=== PATIENT | female | born 1950 | race American Indian/Alaskan Native ===

== ENCOUNTER 2016-11-27 06:53 | Inpatient (IN) | payer MEDICARE ==
--- NOTE | 2016-11-25 09:34 | Anesthesia Consultation ---
Anesthesia Consult and Med Hx Date of service: 11/25/16 - Airway Anesthetic Teeth Evaluation: Dentures ROM Head & Neck: Adequate Mental/Hyoid Distance: Adequate Mallampati Class: Class II Intubation Access Assessment: Probably Good - Pulmonary Exam CTA: Yes - Cardiac Exam Cardiac Exam: RRR - Pre-Operative Health Status ASA Pre-Surgery Classification: ASA3 Proposed Anesthetic Plan: Epidural, Spinal Nerve Block: Adductor canal - Pulmonary Hx Smoking: Yes (NOW-1 PACK /2WEEK, BUT PAST 1/2PPD) Hx Asthma: Yes (INHALERS PRN) - Cardiovascular System Hx Hypertension: Yes (X 10 YRS) Hx Heart Attack/AMI: Yes (7 YRS AGO) Hx Angina: Yes (2 MONTHS AGO,NITRO PRN) Hx Peripheral Vascular Disease: Yes (LEGS) - Central Nervous System CVA: Yes (10 YRS AGO- SLURRED SPEECH) Hx Back Pain: Yes - Other Systems Hx Substance Use: Yes (HX COCAINE ABUSE- CLEAN X 6 YRS) Hx Cancer: No
[2016-11-25 09:36] LABS: Basophils % (Auto) 0.5 % (0.0-1.8); Eosinophils % (Auto) 1.6 % (0.0-4.3); Hematocrit 39.2 % (30.3-42.9); Hemoglobin 12.3 gm/dl (10.1-14.3); Mean Corpuscular HGB Conc 32 % (30-34); Mean Corpuscular Volume 82 fl (79-97); Platelet Count 219 K/mm3 (140-440); Red Blood Count 4.77 M/mm3 (3.65-5.03); Red Cell Distribution Width 15.4 % (13.2-15.2); White Blood Count 8.1 K/mm3 (4.5-11.0)
[2016-11-25 09:41] LABS: Mean Corpuscular Hemoglobin 26 pg (28-32)
[2016-11-25 09:46] LABS: INR 1.01 (0.87-1.13); Partial Thromboplastin Time 26.7 Sec. (24.2-36.6)
[2016-11-25 10:01] LABS: Alanine Aminotransferase 14 units/L (7-56); Albumin 3.9 g/dL (3.9-5); Albumin/Globulin Ratio 1.1 %; Alkaline Phosphatase 129 units/L (35-129); Anion Gap 17 mmol/L; BUN/Creatinine Ratio 18.75; Bilirubin,Total < 0.2 mg/dL (0.1-1.2); Blood Urea Nitrogen 15 mg/dL (7-17); Calcium 9.3 mg/dL (8.4-10.2); Carbon Dioxide 25 mmol/L (22-30); Chloride 104.6 mmol/L (98-107); Glucose 119 mg/dL (65-100); Potassium 4.1 mmol/L (3.6-5.0); Sodium 142 mmol/L (137-145); Total Protein 7.5 g/dL (6.3-8.2)
[~2016-11-27 06:53] MED LIST: MARCAINE-EPI 0.5%-1:200,000 INFILTRATI ONE; NACL 0.9% 1000 ML 1,000 ML IV SCH; NACL INFILTRATI ONE; NACL P/F VIAL (10 ML) INFILTRATI ONE; NEURONTIN PO NR; TRANEXAMIC ACID IV ONE; VANCOMYCIN/NS 1 GM/250 ML 250 ML IV NR; VERSED IV NR
[2016-11-27] MEDS ORDERED: MARCAINE-EPI 0.25%-1:200,000 INFILTRATI ONE (08:56)
[2016-11-27] MEDS ORDERED: DECADRON ONE (08:56)
[2016-11-27] MEDS ORDERED: VERSED IV NR (09:13)
[2016-11-27] MEDS ORDERED: TYLENOL PO PRN (09:30)
[2016-11-27] MEDS ORDERED: MORPHINE IV PRN (09:30)
[2016-11-27] MEDS ORDERED: PHENERGAN PR PRN (09:30)
[2016-11-27] MEDS ORDERED: MILK OF MAGNESIA PO PRN (09:30)
[2016-11-27] MEDS ORDERED: DULCOLAX PR PRN (09:30)
[2016-11-27] MEDS ORDERED: ZOFRAN IV PRN (09:30)
[2016-11-27] MEDS ORDERED: SODIUM CHLORIDE FLUSH SYRINGE 10 ML IV PRN (09:30)
--- NOTE | 2016-11-27 09:40 | Procedure Note ---
Date of procedure: 11/27/16 Pre-op diagnosis: djd right knee Post-op diagnosis: same Procedure: right total knee replacement total synovectomy Anesthesia: regional Surgeon: YARED KESSLER Nail Expert: SATHISH LOONEY
[2016-11-27] MEDS ORDERED: SUBLIMAZE ONE (09:59)
[2016-11-27] MEDS ORDERED: D5/0.45NS 1,000 ML IV SCH (10:00)
[2016-11-27] MEDS ORDERED: ePHEDrine SULFATE ONE ×2 (10:24→11:51)
[2016-11-27] MEDS ORDERED: NEOSPORIN GU IR ONE (10:32)
[2016-11-27] MEDS ORDERED: TORADOL IV ONE (10:33)
[2016-11-27] MEDS ORDERED: MORPHINE IM ONE (10:33)
[2016-11-27] MEDS ORDERED: NACL 0.9% IR ONE ×2 (10:33→10:34)
[2016-11-27] MEDS ORDERED: DEPO-MEDROL INTRA-ARTI ONE (10:33)
[2016-11-27] MEDS ORDERED: MARCAINE-EPI 0.5%-1:200,000 INFILTRATI ONE ×2 (10:33→11:01)
[2016-11-27] MEDS ORDERED: XYLOCAINE MPF 2% ONE ×2 (10:37)
--- NOTE | 2016-11-27 10:49 | Admit Criteria Form ---
Admission Criteria Documentation: AMBULATORY SURGERY EXCEPTION CRITERIA Ambulatory Surgery Exception Criteria ( Place 'X' for any and all applicable criteria): Surgery or procedure performed on ambulatory basis may require inpatient stay for[A] ANY ONE of the following(1)(2)(3)(4)(5)(6)(7)(8)(9): [X] I. A preoperative situation, condition, or finding that warrants inpatient stay as indicated by ANY ONE of the following: [] a) Inpatient care needed because of severity of a disease or condition rather than the surgery (eg, severe cardiac or respiratory disease, severe infection) (15) (16 ) (17) (18) [] b) Emergent procedure (eg, angioplasty for acute ischemia)(19) [] c) Complex surgical approach or situation as indicated by ANY ONE of the following(3): [] i) Open approach needed instead of usual endoscopic, transcatheter, or other less invasive procedure [] ii) Difficult approach because of previous operation [] iii) Airway monitoring required after open neck procedures(20)(21) [] iv) Large mass requiring unusually extensive dissection [] v) Additional complicating feature requiring inpatient care (eg, drain management)(22(23): [X] d) Major surgery in a pt with high anesthetic risk as indicated by ANY ONE of the following (2)(3)(5)(7)(8): [X] i) ASA risk class III or higher (severe systemic disease impairing function) [D] [] ii) Advanced age (eg, older than 85 years)(14)(24) [] iii) Symptomatic heart failure(25) [] iv) Symptomatic asthma or COPD(8)(21) [] v) Morbid obesity with hemodynamic or respiratory problems(20)( 21)(26)(27) [] vi) Obstructive sleep apnea(20)(21) [] vii) Former premature infants who are younger than 60 weeks [] viii) High risk for severe postoperative abnormalities (eg, severe postoperative hypocalcemia after parathyroidectomy for severe hyperparathyroidism)(27)( 28) [] ix) Unstable angina(25) [] e) Drug-related risk requiring inpatient stay as indicated by ANY ONE of the following(5)(10)(14)(32)(33) [] i) Procedure requires discontinuing drugs or other therapy (eg , antiarrhythmic medication, antiseizure medication), which necessitates inpatient observation or treatment.(18)(31) [] ii) Major surgery and high risk drug use as indicated by ANY ONE of the following: [] 1) Active abuse of cocaine or similar drug [] 2) Monoamine oxidase inhibitor use [] 3) Other drug identified as posing risk [] f) Inadequate outpatient care situation as indicated by ANY ONE of the following(5)(10)(14)(32)(33) [] i) Patient lives remote from medical facility and procedure has urgent complication potential, and temporary nearby residence cannot be arranged [] ii) Patient will have postprocedure incapacitation and inadequate assistance at home, or alternative level of care cannot be arranged. [] iii) Patient will have long general anesthesia or procedure side effect resolution time, and competent person to stay with patient on first postoperative night at home or alternative level of care cannot be arranged. []iv) Other inadequate outpatient situation that cannot be handled by other means [] II. A perioperative event, condition, or finding that warrants inpatient stay as indicated by ANY ONE of the following (1)(2)(3): [] a) Inadequate physiologic recovery: cardiovascular, respiratory, or hemodynamic status not normal or near preoperative baseline(18) [] b) Hemodynamic instability [] c) Patient not alert with near normal or baseline mental status [] d) Temperature not normal or as expected and not appropriate for outpatient treatment of condition [] e) Ambulatory or appropriate activity level status not yet achieved post procedure [E](34)(35)(36) [] f) Operative site not appropriate (eg, unexpected or excessive drainage or bleeding) [] g) Postoperative effects not resolved or adequately managed (eg, significant pain or vomiting not appropriate for outpatient or next level of care)(10)(12) [] h) Complicating features requiring inpatient care as indicated by ANY ONE of the following(37): [] i) Severe complications of procedure (eg, bowel injury, airway compromise, vascular injury,severe hemorrhage) [] ii) Extensive (eg, dissection far beyond usual scope of procedure ) or prolonged (eg, 120 minutes beyond usual) surgery needed requiring inpatient postoperative care [] iii) Conversion to an open or complex procedure that requires inpatient care (eg, open vs laparoscopic cholecystectomy, abdominal vs vaginal hysterectomy)(38) [] iv) Comorbid condition or test result identified during or post procedure that requires inpatient care (7) [] v) Malignant hyperthermia(30) [] vi) Other complicating feature requiring inpatient care(22)(23) Inpatient stay may be needed until ALL of the following are present (1)(2)(3)(4) (5)(6)(10)(14)(33)(40): []a) Physiologic recovery: cardiovascular, respiratory, and hemodynamic status normal or near preoperative baseline []b) Hemodynamic stability []c) Patient alert, with near normal or baseline mental status []d) Temperature appropriate: patient afebrile or temperature appropriate for outpt treatment of condition []e) Activity level appropriate: ambulatory or appropriate activity level post procedure []f) Operative site appropriate as indicated by ALL of the following: []i) Site dry or with expected drainage []ii) Any blood noted is as expected for procedure. []g) Postoperative effects resolved or managed as indicated by ALL of the following: []i) Pain management appropriate for outpatient (or next level of) care(10) []ii) Minimal nausea and vomiting: if present, successfully treated with oral medication(12) []iii) Headache, dizziness, or drowsiness (if present) are mild. []h) Voiding status acceptable as indicated by ANY ONE of the following: []i) Voiding spontaneously []ii) No voiding but instructions given for follow-up in 6 to 8 hours []iii) Urinary catheter in place, and instructions given for follow-up []i) Complicating features requiring inpatient care manageable at a lower level of care(37) []j) Comorbid conditions manageable at a lower level of care(37) The original [employer] content created by [employer] has been revised. The portions of the content which have been revised are identified through the use of italic text or in bold, and [facility] [employer] has neither reviewed nor approved the modified material. All other unmodified content is copyright [employer]. Please see references footnoted in the original [employer] edition 2016 Admission Criteria Met: Yes
[2016-11-27] MEDS ORDERED: NACL 0.9% 1000 ML 1,000 ML ONE ×2 (10:53→12:24)
[2016-11-27] MEDS ORDERED: NEURONTIN PO NR (11:00)
[2016-11-27] MEDS ORDERED: ANCEF/NS 1 GM/50 ML 50 ML IV SCH (11:00)
[2016-11-27] MEDS ORDERED: NACL INFILTRATI ONE (11:01)
[2016-11-27] MEDS ORDERED: NACL P/F VIAL (10 ML) INFILTRATI ONE (11:01)
[2016-11-27] MEDS ORDERED: TRANEXAMIC ACID IV ONE (11:01)
[2016-11-27] MEDS ORDERED: DIPRIVAN 10 MG/ML 100 ML IV ONE (11:30)
[2016-11-27] MEDS: ePHEDrine SULFATE IV PRN ×2 (11:53→12:05)
[2016-11-27] MEDS ORDERED: ePHEDrine SULFATE IM NR (12:15)
--- NOTE | 2016-11-27 12:29 | Post Anesthesia Evaluation ---
- Post Anesthesia Evaluation Patient Participated: Yes Airway Patent: Yes Stable Respiratory Function: Yes Nausea/Vomiting: No Temp > 96.8F: Yes Pain Manageable: Yes Adequeate Hydration: Yes Anesthesia Complications: No
[2016-11-27] MEDS ORDERED: NACL 0.9% 500 ML 500 ML IV ONE (12:42)
[2016-11-27] MEDS ORDERED: AMBIEN PO PRN (22:00)
[2016-11-28] MEDS: NORCO 5/325 PO PRN (04:30)
--- NOTE | 2016-11-28 08:26 | Progress Note ---
Assessment and Plan alert orientated in NAD chest clear, soft abdoen , moderate pain, wound ok. Doing well. OOB. plan DC in am. Subjective Date of service: 11/28/16 Objective Vital signs: Vital Signs - 12hr 11/27/16 11/27/16 11/28/16 22:00 22:57 01:16 Temperature 98.7 F 98.7 F Pulse Rate [ 84 80 Left] Respiratory 20 20 Rate Blood Pressure 93/43 83/40 [Left Arm] O2 Sat by Pulse 96 96 98 Oximetry - Labs CBC & BMP: 11/25/16 09:10 11/25/16 09:10 Labs: Abnormal lab results 11/27/16 11/27/16 11/27/16 Range/Units 08:35 11:29 16:31 POC Glucose 125 H 157 H 173 H (70-105)
--- NOTE | 2016-11-28 09:20 | Consultation ---
History of Present Illness - Reason for Consult Consult date: 11/28/16 Medical management Requesting physician: YARED KESSLER - History of Present Illness S/p R TKA-doing well Past History Past Medical History: CAD, hypertension, other (Asthma) Medications and Allergies Allergies Allergy/AdvReac Type Severity Reaction Status Date / Time No Known Allergies Allergy Verified 07/05/15 07:52 Home Medications Medication Instructions Recorded Confirmed Last Taken Type Diltiazem HCl [Diltiazem ER] 240 mg PO QDAY 02/06/15 11/20/16 11/27/16 05:30 History Lisinopril 40 mg PO DAILY 02/06/15 11/20/16 11/27/16 05:30 History Albuterol Sulfate [Albuterol 0.63% 0.63 mg IH TID PRN #1 box 07/05/15 11/20/16 Unknown Rx NEBS] Albuterol Sulfate [Ventolin HFA] 2 puff IH Q4H PRN #1 [email or web address] 07/05/1511/27/16 05:30 Rx ISOSORBIDE MONOnitrate [Imdur ER] 60 mg PO QDAY 07/05/15 11/20/16 11/27/16 05: 30 History Nitroglycerin [Nitrostat] 0.4 mg SL Q5M PRN 07/05/15 11/20/16 09/15/16 History Aspirin [Adult Low Dose Aspirin EC] 81 mg PO DAILY 11/20/16 11/20/16 1 Week Ago History AtorvaSTATin [Lipitor] 40 mg PO DAILY 11/20/16 11/20/16 11/27/16 05:30 History Clopidogrel Bisulfate [Plavix] 75 mg PO DAILY 11/20/16 11/20/16 1 Week Ago History Fluticasone/Salmeterol [Advair 1 puff INHALATION PRN PRN 11/20/16 11/20/1611/27 05:30 History Diskus 100-50 mcg] Ibuprofen [Motrin] 800 mg PO Q8HR PRN 11/20/16 11/20/16 1 Week Ago History Latanoprost 0.005% [Xalatan 0.005%] 1 drop OP QPM 11/20/16 11/20/16 11/26/16 History [place]-3 Fatty Acids/Fish Oil [Fish 1 cap PO DAILY 11/20/16 11/20/16 11/26/16 History Oil] metFORMIN [Glucophage] 500 mg PO BID 11/20/16 11/20/16 11/26/16 History Furosemide [Lasix] 20 mg PO QDAY 11/27/16 11/27/16 11/26/16 History Active Meds: Active Medications Acetaminophen (Tylenol) 650 mg PO Q4H PRN PRN Reason: Pain MILD(1-3)/Fever >100.5/LEE Acetaminophen/Hydrocodone Bitart ([place] 5/325) 1 each PO Q6H PRN PRN Reason: Pain, Moderate (4-6) Last Admin: 11/28/16 04:30 Dose: 1 each Bisacodyl (Dulcolax) 10 mg MO QDAY PRN PRN Reason: Constip unreliev by MOM/or NPO Enoxaparin Sodium (Lovenox) 40 mg SUB-Q QDAY MAR Dextrose/Sodium Chloride (D5/0.45ns) 1,000 mls @ 100 mls/hr IV DIRECT MAR Magnesium Hydroxide (Milk Of Magnesia) 30 ml PO Q4H PRN PRN Reason: Constipation Morphine Sulfate (Morphine) 2 mg IV Q4H PRN PRN Reason: Pain, Moderate (4-6) Last Admin: 11/27/16 15:40 Dose: 2 mg Morphine Sulfate (Morphine) 4 mg IV Q4H PRN PRN Reason: Pain , Severe (7-10) Ondansetron HCl (Zofran) 4 mg IV Q8H PRN PRN Reason: Nausea And Vomiting Oxycodone HCl (Oxycontin) 10 mg PO Q12HR MAR Promethazine HCl (Phenergan) 25 mg MO Q6H PRN PRN Reason: Nausea And Vomiting Zolpidem Tartrate (Ambien) 5 mg PO QHS PRN PRN Reason: Sleep Review of Systems All systems: negative Exam - Constitutional Vitals: Temp Pulse Resp BP Pulse Ox 98.7 F 80 20 83/40 98 11/28/16 01:16 11/28/16 01:16 11/28/16 01:16 11/28/16 01:16 11/28/16 01:16 General appearance: Present: no acute distress, well-nourished - EENT Eyes: Present: PERRL ENT: hearing intact, clear oral mucosa - Neck Neck: Present: supple, normal ROM - Respiratory Respiratory effort: normal Respiratory: bilateral: CTA - Cardiovascular Heart Sounds: Present: S1 & S2. Absent: rub, click - Extremities Extremities: pulses symmetrical, No edema Peripheral Pulses: within normal limits - Abdominal General gastrointestinal: Present: soft, non-tender, non-distended, normal bowel sounds Female genitourinary: Present: normal - Integumentary Integumentary: Present: clear, warm, dry - Musculoskeletal Musculoskeletal: gait normal, strength equal bilaterally - Psychiatric Psychiatric: appropriate mood/affect, intact judgment & insight - Neurologic Neurologic: CNII-XII intact, moves all extremities Results - Labs CBC & Chem 7: 11/25/16 09:10 11/25/16 09:10 Labs: Abnormal lab results 11/27/16 11/27/16 Range/Units 11:29 16:31 POC Glucose 157 H 173 H (70-105) Assessment and Plan - Patient Problems (1) History of total knee arthroplasty Current Visit: Yes Status: Acute Qualifiers: Laterality: right Qualified Code(s): Z96.651 - Presence of right artificial knee joint (2) HTN (hypertension) Current Visit: Yes Status: Chronic Qualifiers: Hypertension type: essential hypertension Qualified Code(s): I10 - Essential (primary) hypertension (3) Asthma Current Visit: Yes Status: Chronic Qualifiers: Asthma severity: mild intermittent (4) CAD (coronary artery disease) Current Visit: Yes Status: Chronic Qualifiers: Coronary Disease-Associated Artery/Lesion type: [place] artery Associated angina: without angina (5) DVT prophylaxis Current Visit: Yes Status: Acute Plan to address problem: on lovenox (6) Pain management Current Visit: Yes Status: Acute
[2016-11-28] MEDS: MORPHINE IV PRN ×3 (09:45→19:45)
[2016-11-28] MEDS: LOVENOX SUB-Q SCH (10:00)
[2016-11-28] MEDS: OxyCONTIN PO SCH ×2 (10:00→22:10)
--- NOTE | 2016-11-28 11:49 | Progress Note ---
Subjective Date of service: 11/28/16 Interval history: 1st POD after total knee replacement. Patient is in the bed, relatively comfortable. Pain is well controlled with pain meds. Ambulated with physical therapist. No nausea or vomiting. No anesthesia complications Objective - Constitutional Vitals: Vital Signs - 12hr 11/28/16 11/28/16 01:16 08:00 Temperature 98.7 F 97.6 F Pulse Rate [ 80 91 H Left] Respiratory 20 20 Rate Blood Pressure 83/40 132/67 [Left Arm] O2 Sat by Pulse 98 97 Oximetry - Labs CBC & Chem 7: 11/25/16 09:10 11/25/16 09:10 Labs: Abnormal lab results 11/27/16 Range/Units 16:31 POC Glucose 173 H (70-105)
[2016-11-28] MEDS ORDERED: IMDUR PO SCH (19:00)
[2016-11-28] MEDS ORDERED: NON-FORMULARY (Fluticasone/Salmeterol [Advair Diskus 100-50 Mcg] 1 PUFF) INHALATION PRN (19:00)
[2016-11-28] MEDS ORDERED: PLAVIX PO SCH (19:00)
[2016-11-28] MEDS ORDERED: HALFPRIN EC PO SCH (19:00)
[2016-11-28] MEDS ORDERED: LASIX PO SCH (19:00)
[2016-11-28] MEDS ORDERED: MOTRIN PO PRN (19:00)
[2016-11-28] MEDS ORDERED: NITROSTAT SL PRN (19:00)
[2016-11-28] MEDS ORDERED: PROAIR IH PRN (19:00)
[2016-11-28] MEDS ORDERED: ZESTRIL PO SCH (19:00)
[2016-11-28] MEDS ORDERED: FISH OIL PO SCH (19:00)
[2016-11-28] MEDS ORDERED: NON-FORMULARY (Albuterol Sulfate [Albuterol 0.63% Nebs] 0.63 MG) IH PRN (19:00)
[2016-11-28] MEDS ORDERED: NON-FORMULARY (Diltiazem Hcl [Diltiazem Er] 240 MG) PO SCH (19:00)
[2016-11-28] MEDS ORDERED: PROVENTIL IH PRN (19:25)
[2016-11-28] MEDS ORDERED: CARDIZEM CD PO SCH (20:00)
[2016-11-28] MEDS: GLUCOPHAGE PO SCH (22:11)
[2016-11-29] MEDS: MORPHINE IV PRN (08:35)
[2016-11-29] MEDS: BROVANA NEBU IH SCH ×2 (08:41→08:43)
[2016-11-29] MEDS: PULMICORT IH SCH ×2 (08:41→08:43)
[2016-11-29] MEDS: LOVENOX SUB-Q SCH (10:00)
[2016-11-29] MEDS: NORCO 5/325 PO PRN (10:00)
[2016-11-29] MEDS: OxyCONTIN PO SCH (10:00)
[2016-11-29] MEDS: GLUCOPHAGE PO SCH (10:00)
--- NOTE | 2016-11-29 16:32 | Progress Note ---
Assessment and Plan Assessment and plan: 1. Status post right total knee replacement - management per Ortho 2. CAD - without angina; on beta aster, SHUBHAM inhibitor, nitrates, antiplatelet and statin therapy 3. Hypertension - BP controlled on current regimen 4. Diabetes - continue metformin; if BS elevated will add sliding scale insulin 5. Asthma - without exacerbation; continue inhaled bronchodilators 6. DVT prophylaxis - per primary team History Interval history: doing well, c/o mild right knee pain Hospitalist Physical - Constitutional Vitals: Temp Pulse Resp BP Pulse Ox 98.1 F 75 18 131/66 97 11/29/16 07:15 11/29/16 08:41 11/29/16 08:41 11/29/16 07:15 11/29/16 08:41 General appearance: Present: no acute distress, obese - Neck Neck: Present: supple, normal ROM. Absent: masses or JVD - Respiratory Respiratory effort: normal Respiratory: bilateral: CTA, negative: rales, rhonchi, wheezing - Cardiovascular Rhythm: regular Heart Sounds: Present: S1 & S2. Absent: systolic murmur - Extremities Extremities: no ischemia - Abdominal General gastrointestinal: soft, non-tender, non-distended, normal bowel sounds - Psychiatric Psychiatric: cooperative - Neurologic Neurologic: CNII-XII intact, no focal deficits Results - Labs CBC & Chem 7: 11/25/16 09:10 11/25/16 09:10 Labs: Laboratory Last Values WBC 8.1 K/mm3 (4.5-11.0) 11/25/16 09:10 RBC 4.77 M/mm3 (3.65-5.03) 11/25/16 09:10 Hgb 12.3 gm/dl (10.1-14.3) 11/25/16 09:10 Hct 39.2 % (30.3-42.9) 11/25/16 09:10 MCV 82 fl (79-97) 11/25/16 09:10 MCH 26 pg (28-32) L 11/25/16 09:10 MCHC 32 % (30-34) 11/25/16 09:10 RDW 15.4 % (13.2-15.2) H 11/25/16 09:10 Plt Count 219 K/mm3 (140-440) 11/25/16 09:10 Lymph % (Auto) 32.9 % (13.4-35.0) 11/25/16 09:10 [place] % (Auto) 6.8 % (0.0-7.3) 11/25/16 09:10 Eos % (Auto) 1.6 % (0.0-4.3) 11/25/16 09:10 Baso % (Auto) 0.5 % (0.0-1.8) 11/25/16 09:10 Lymph # 2.7 K/mm3 (1.2-5.4) 11/25/16 09:10 [place] # 0.5 K/mm3 (0.0-0.8) 11/25/16 09:10 Eos # 0.1 K/mm3 (0.0-0.4) 11/25/16 09:10 Baso # 0.0 K/mm3 (0.0-0.1) 11/25/16 09:10 Seg Neutrophils % 58.2 % (40.0-70.0) 11/25/16 09:10 Seg Neutrophils # 4.7 K/mm3 (1.8-7.7) 11/25/16 09:10 PT 13.2 Sec. (12.2-14.9) 11/25/16 09:10 INR 1.01 (0.87-1.13) 11/25/16 09:10 APTT 26.7 Sec. (24.2-36.6) 11/25/16 09:10 Sodium 142 mmol/L (137-145) 11/25/16 09:10 Potassium 4.1 mmol/L (3.6-5.0) 11/25/16 09:10 Chloride 104.6 mmol/L (98-107) 11/25/16 09:10 Carbon Dioxide 25 mmol/L (22-30) 11/25/16 09:10 Anion Gap 17 mmol/L 11/25/16 09:10 BUN 15 mg/dL (7-17) 11/25/16 09:10 Creatinine 0.8 mg/dL (0.7-1.2) 11/25/16 09:10 Estimated GFR > 60 ml/min 11/25/16 09:10 BUN/Creatinine Ratio 18.75 % 11/25/16 09:10 Glucose 119 mg/dL (65-100) H 11/25/16 09:10 POC Glucose 125 (70-105) H 11/29/16 11:53 Calcium 9.3 mg/dL (8.4-10.2) 11/25/16 09:10 Total Bilirubin < 0.2 mg/dL (0.1-1.2) 11/25/16 09:10 AST 13 units/L (5-40) 11/25/16 09:10 ALT 14 units/L (7-56) 11/25/16 09:10 Alkaline Phosphatase 129 units/L (35-129) 11/25/16 09:10 Total Protein 7.5 g/dL (6.3-8.2) 11/25/16 09:10 Albumin 3.9 g/dL (3.9-5) 11/25/16 09:10 Albumin/Globulin Ratio 1.1 % 11/25/16 09:10
[2016-11-29 17:10] VITALS: BP 116/50
[2016-11-29] MEDS ORDERED: XALATAN 0.005% OU SCH (18:00)
--- NOTE | 2016-11-30 11:49 | Operative Report ---
PREOPERATIVE DIAGNOSES: 1. Degenerative arthritis of the right knee. 2. Chronic synovitis, right knee. PROCEDURES: 1. Total knee replacement arthroplasty, right knee ([place]). 2. Complete synovectomy of the knee. SURGEON: Dr. Yony Hurtado. CERTIFIED PARALEGAL: Jose Manuel Guillermo RN. ANESTHESIA: General. COMPLICATIONS: None. COMPONENTS USED: Philip Triathlon knee cruciate retaining #2 femur, #2 tibia with a 9 mm tibial bearing, and 29 mm patella. BRIEF HISTORY: The patient is a 65-year-old female, who was admitted to the hospital for surgical repair of the knee. The patient has a history of chronic knee pain that limit her activities, chronic recurrent swelling and effusions of the knee joint. PROCEDURE IN DETAIL: Once the patient was in the surgical room, a time-out was carried out to identify the patient and procedure, the procedure was carried out using an assistance secondary to the complexity of the case. Once this was done, the procedure was done by making a straight midline incision in front of the knee joint. Dissection was carried out to subcutaneous tissues, the dissection was carried out to allow medial parapatellar incision into the joint. The incision was carried out, a retractor was applied. At this point, resection of the synovium was done. The synovectomy was started in the superior pouch. The synovium was from the deep muscle layer and it was sharply and bluntly. The dissection was carried out to the right and left of the midline cleaning up both medial and lateral gutters. Once this was done, the pouch was removed from the field. The wound was extensively irrigated, following that the knee was placed in flexion. The patella was everted, at this point using the Philip instrumentation, a drill hole was carried out into the medullary canal of the femur, following this, using this as a reference, cutting of the femur was carried out to a size 2. A lamina bowling ball weigher and packer was placed in the joint, and menisci were resected. At this point, the tibia was cut using the extramedullary guide. The tibia was cut without any problems, at this point, lamina bowling ball weigher and packer was carried out and the finishing of the synovectomy was carried out by cleaning out of the gutters and the posterior aspect of the knee joint. Once this was carried out, the trialing of the knee was done. Trial components were inserted and determination of the tibial spacing was done. The patella was then measured and cut. Once this was done, all the components were removed. The knee was infiltrated with Marcaine with epinephrine and multiple injections in a clock fashion. Once this was carried out, the procedure was continued by drying of the knee, the actual component was then inserted. Fixation of the components were carried out into the joint using acrylic cement. The joint was reduced and full range of motion was carried out. The joint was stable both in the flexion and extension. The procedure was then terminated, the knee capsule was closed with #1 Vicryl using the subcutaneous tissues with 2-0 Vicryl, the skin with skin clips, a compression bandage was applied. The patient tolerated the procedure well. There were no complications. JOB# [id number] ATILIO/GREG GLASS
== END 2016-11-29 18:15 | disposition home or self-care (01) | DRG 470 ==
LOC: 3A 06:53 → 2B-SURG 12:03
PROC: 0SRC0J9 Replacement of Right Knee Joint with Synthetic Substitute, Cemented, Open Approach (ICD-10-PCS; principal; 2016-11-27)
PROC: 0SBC0ZZ Excision of Right Knee Joint, Open Approach (ICD-10-PCS; 2016-11-27)
DX: M17.11 Unilateral primary osteoarthritis, right knee (principal); F17.210 Nicotine dependence, cigarettes, uncomplicated; I73.9 Peripheral vascular disease, unspecified; M54.9 Dorsalgia, unspecified; I25.10 Atherosclerotic heart disease of native coronary artery without angina pectoris; I10 Essential (primary) hypertension; J45.909 Unspecified asthma, uncomplicated; E11.9 Type 2 diabetes mellitus without complications; M65.9 Synovitis and tenosynovitis, unspecified; M25.469 Effusion, unspecified knee; I25.2 Old myocardial infarction; I69.328 Other speech and language deficits following cerebral infarction; Z79.899 Other long term (current) drug therapy; Z79.82 Long term (current) use of aspirin; Z79.02 Long term (current) use of antithrombotics/antiplatelets; Z79.84 Long term (current) use of oral hypoglycemic drugs; Z82.61 Family history of arthritis; Z80.9 Family history of malignant neoplasm, unspecified; Z83.2 Family history of diseases of the blood and blood-forming organs and certain disorders involving the immune mechanism; Z82.3 Family history of stroke; Z82.49 Family history of ischemic heart disease and other diseases of the circulatory system; Z83.3 Family history of diabetes mellitus
CPT/HCPCS: 36415; 62324; 64450; 80053; 82962; 85025; 85610; 85730; 88304; 88305; 88311; 94760; A4217; A9270-GY; C1776; G8978-GP; G8979-GP; J1030; J1100; J1650; J1885; J2250; J2270; J2704; J3010; J3370; J7030

== ENCOUNTER 2017-01-16 13:12 | Outpatient (CLI) | payer MEDICARE ==
[2017-01-16 13:33] LABS: Bilirubin,Urine NEG (Negative); Blood,Urine NEG (Negative); Ketones,Urine NEG (Negative); Leukocyte Esterase,Urine TR (Negative); Mucus,Urine FEW /HPF; Nitrite,Urine NEG (Negative); Protein,Urine <15 mg/dL mg/dL (Negative); Urobilinogen,Urine < 2.0 mg/dL (<2.0)
== END 2017-01-16 13:13 | disposition home or self-care (01) ==
LOC: LABHHL 13:12
PROVIDERS: ATTEND Internal Medicine
DX: N39.0 Urinary tract infection, site not specified (principal)
CPT/HCPCS: 81001; 87086

== ENCOUNTER 2017-04-22 06:46 | Day surgery (SDC) | payer MEDICARE ==
[2017-04-22] MEDS ORDERED: NACL 0.9% 1000 ML 1,000 ML IV SCH (07:58)
--- NOTE | 2017-04-22 08:01 | Anesthesia Consultation ---
Anesthesia Consult and Med Hx Date of service: 04/22/17 - Airway Anesthetic Teeth Evaluation: Poor, Dentures (upper and lower) ROM Head & Neck: Adequate Mental/Hyoid Distance: Inadequate Mallampati Class: Class II Intubation Access Assessment: Probably Good - Pulmonary Exam CTA: Yes - Cardiac Exam Cardiac Exam: RRR - Pre-Operative Health Status ASA Pre-Surgery Classification: ASA3 Proposed Anesthetic Plan: General - Pulmonary Hx Smoking: Yes (1/2 PPD, quit one month ago) Hx Asthma: Yes (INHALERS PRN) Hx Sleep Apnea: No (THIAGO PRE SCREEN HIGH RISK) - Cardiovascular System Hx Hypertension: Yes Hx Coronary Artery Disease: Yes (stent x1) Hx Heart Attack/AMI: Yes (5 YRS AGO) Hx Angina: Yes (RARE,NITRO PRN) Hx Peripheral Vascular Disease: Yes (LEGS) - Central Nervous System CVA: Yes (10 YRS AGO - SLURRED SPEECH.) Hx Back Pain: Yes Hx Psychiatric Problems: No - Gastrointestinal Hx Gastroesophageal Reflux Disease: Yes - Endocrine Hx Non-Insulin Dependent Diabetes: Yes - Hematic Hx Anemia: No Hx Sickle Cell Disease: No - Other Systems Hx Alcohol Use: No Hx Substance Use: Yes (HX COCAINE ABUSE- CLEAN X 6 YRS) Hx Cancer: No Hx Obesity: Yes
--- NOTE | 2017-04-22 08:01 | Anesthesia Day of Surgery ---
Anesthesia Day of Surgery - Day of Surgery Patient Examined: Yes Patient H&P Reviewed: Yes Patient is NPO: Yes
[2017-04-22] MEDS ORDERED: VERSED IV ONE (08:15)
[2017-04-22] MEDS ORDERED: PEPCID IV ONE (08:15)
[2017-04-22] MEDS ORDERED: MARCAINE-EPI 0.5%-1:200,000 INFILTRATI ONE (08:17)
[2017-04-22] MEDS ORDERED: DECADRON IV ONE (08:18)
[2017-04-22] MEDS ORDERED: NEURONTIN PO NR (08:20)
[2017-04-22] MEDS ORDERED: DECADRON ONE (08:23)
[2017-04-22] MEDS ORDERED: MARCAINE-EPI/PF 0.5%-1:200,000 INFILTRATI ONE ×2 (08:23→08:58)
[2017-04-22] MEDS ORDERED: MORPHINE ONE (08:57)
[2017-04-22] MEDS ORDERED: DEPO-MEDROL ONE (08:57)
[2017-04-22] MEDS ORDERED: TORADOL ONE (08:59)
[2017-04-22] MEDS ORDERED: DIPRIVAN 10 MG/ML IV ONE (09:22)
[2017-04-22] MEDS ORDERED: DILAUDID ONE (09:23)
[2017-04-22] MEDS ORDERED: DEPO-MEDROL INTRA-ARTI ONE (09:29)
--- NOTE | 2017-04-22 09:39 | Short Stay Summary ---
Short Stay Documentation Date of service: 04/22/17 - History H&P: obtained from office - Allergies and Medications Current Medications: Allergies No Known Allergies Allergy (Verified 07/05/15 07:52) Home Medications Medication Instructions Recorded Confirmed Last Taken Type Diltiazem HCl [Diltiazem ER] 240 mg PO QDAY 02/06/15 04/16/17 11/27/16 05:30 History Lisinopril 40 mg PO DAILY 02/06/15 04/16/17 11/27/16 05:30 History Albuterol Sulfate [Albuterol 0.63% 0.63 mg IH TID PRN #1 box 07/05/15 04/16/17 Unknown Rx NEBS] Albuterol Sulfate [Ventolin HFA] 2 puff IH Q4H PRN #1 [email or web address] 07/05/1511/27/16 05:30 Rx ISOSORBIDE MONOnitrate [Imdur ER] 60 mg PO QDAY 07/05/15 04/16/17 11/27/16 05: 30 History Nitroglycerin [Nitrostat] 0.4 mg SL Q5M PRN 07/05/15 04/16/17 09/15/16 History Aspirin [Adult Low Dose Aspirin EC] 81 mg PO DAILY 11/20/16 04/16/17 1 Week Ago History AtorvaSTATin [Lipitor] 40 mg PO DAILY 11/20/16 04/16/17 11/27/16 05:30 History Fluticasone/Salmeterol [Advair 1 puff INHALATION PRN PRN 11/20/16 04/16/1711/27 05:30 History Diskus 100-50 mcg] Latanoprost 0.005% [Xalatan 0.005%] 1 drop OP QPM 11/20/16 04/16/17 11/26/16 History [place]-3 Fatty Acids/Fish Oil [Fish 1 cap PO DAILY 11/20/16 04/16/17 11/26/16 History Oil] metFORMIN [Glucophage] 500 mg PO BID 11/20/16 04/16/17 11/26/16 History Furosemide [Lasix] 20 mg PO QDAY 11/27/16 04/16/17 11/26/16 History Active Medications Celecoxib (Celebrex) 200 mg PO PREOP NR Stop: 04/22/17 23:59 Last Admin: 04/22/17 08:28 Dose: 200 mg Gabapentin (Neurontin) 300 mg PO PREOP NR Stop: 04/22/17 23:59 Last Admin: 04/22/17 08:27 Dose: 300 mg Sodium Chloride (Nacl 0.9% 1000 Ml) 1,000 mls @ 75 mls/hr IV DIRECT MAR Last Admin: 04/22/17 08:28 Dose: 75 mls/hr - Brief post op/procedure progress note Date of procedure: 04/22/17 Pre-op diagnosis: fibrous ankylosis right knee Post-op diagnosis: same Procedure: Manipulation under anesthesia rightn knee Anesthesia: GETA Surgeon: YARED KESSLER Estimated blood loss: none Pathology: none - Disposition Disposition: DC-01 TO HOME OR SELFCARE Short Stay Discharge Plan Follow up with: SHELLEY CANO MD [Primary Care Provider] - 7 Days
[2017-04-22] MEDS ORDERED: DILAUDID IV PRN (09:57)
[2017-04-22] MEDS ORDERED: XYLOCAINE MPF 2% ONE (10:00)
[2017-04-22] MEDS ORDERED: NORCO 10/325 PO PRN (10:12)
[2017-04-22 12:36] VITALS: BP 136/76
--- NOTE | 2017-04-22 15:27 | Operative Report ---
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 PROCEDURE: Manipulation of the knee under anesthesia, right knee. COMPLICATIONS: None. PROCEDURE IN DETAIL: Once the patient was in the surgical room, a time-out was carried out to identify the patient and procedure. At this point, once the adequate anesthetic level was obtained, the knee was manipulated. The knee was ____ flexing the knee we pushed on from about 60 degrees of flexion to about 100 degrees. This was done without any gross complications. This was done many times. Once this was done, the procedure was terminated. The knee was prepped and 40 mg of Depo-Medrol were injected into the joint space. Once this was carried out, the procedure was terminated. The patient was taken to the Recovery room, doing well. JOB# [id number] ATILIO/GREG
== END 2017-04-22 13:42 | disposition home or self-care (01) ==
LOC: OR 06:46
DX: M24.661 Ankylosis, right knee (principal); M17.11 Unilateral primary osteoarthritis, right knee; I10 Essential (primary) hypertension; I25.10 Atherosclerotic heart disease of native coronary artery without angina pectoris; J45.909 Unspecified asthma, uncomplicated; K21.9 Gastro-esophageal reflux disease without esophagitis; E11.9 Type 2 diabetes mellitus without complications; E66.9 Obesity, unspecified; Z68.41 Body mass index [BMI] 40.0-44.9, adult; Z87.898 Personal history of other specified conditions; Z87.891 Personal history of nicotine dependence; Z95.5 Presence of coronary angioplasty implant and graft; Z86.73 Personal history of transient ischemic attack (TIA), and cerebral infarction without residual deficits; Z86.79 Personal history of other diseases of the circulatory system; Z96.651 Presence of right artificial knee joint; Z79.84 Long term (current) use of oral hypoglycemic drugs; Z79.82 Long term (current) use of aspirin; Z79.899 Other long term (current) drug therapy; Z82.49 Family history of ischemic heart disease and other diseases of the circulatory system; Z82.3 Family history of stroke; Z82.61 Family history of arthritis; Z83.3 Family history of diabetes mellitus; Z83.2 Family history of diseases of the blood and blood-forming organs and certain disorders involving the immune mechanism; Z80.9 Family history of malignant neoplasm, unspecified
CPT/HCPCS: 27570; 36415; 64447; 82962; 84132; J1030; J1100; J1170; J2250; J2704; J7030; J1885; J2270

== ENCOUNTER 2018-02-12 08:12 | Outpatient (CLI) | payer MEDICARE ==
[2018-02-12 09:00] LABS: Blood Urea Nitrogen 13 mg/dL (7-17)
--- NOTE | 2018-02-12 11:20 | Cat Scan Report ---
FINAL REPORT EXAM: CT ABDOMEN WO CON HISTORY: LOCALIZED SWELLING/MASS LUMP TRUNK/LEFT UPPER QUADRANT PAIN TECHNIQUE: CT examination of the abdomen without IV contrast PRIORS: Chest CT 12/11/2016 FINDINGS: Nonspecific slight skin thickening in each breast is unchanged. Stable slight linear scar in both lung bases. Degenerative change in the regional skeleton. No evidence of acute fracture. Coronary artery calcification. Large calcified gallstone again noted in the gallbladder lumen. No CT evidence of other biliary pathology. Normal noncontrast appearance of the liver, adrenals, pancreas, and spleen. Normal caliber abdominal aorta with severe calcified atherosclerotic plaque. Normal caliber IVC. Prominent plaque at the origin of the celiac artery and SMA may be associated with stenosis. No retroperitoneal adenopathy. No mesenteric mass. Normal-appearing kidneys and visible ureteral segments. No evidence of ascites. Small hiatal hernia. Otherwise normal appearing stomach and duodenum. No distention of included small and large bowel. No evidence of free air. 2.0 x 3.3 cm subcutaneous nonspecific fatty lesion most compatible with lipoma. Sagittal dimension is 3.7 cm. It is positioned in the left anterolateral left upper quadrant abdominal wall. Small fat containing midline ventral hernia with maximum transverse dimension of 1.8 cm is noted in the mid to upper abdomen. IMPRESSION: 1.8 cm fat containing midline ventral hernia 2.0 x 3.3 x 3.7 cm fatty lesion in the anterolateral left upper quadrant abdominal wall subcutaneous tissues Nonspecific slight skin thickening in each breast is unchanged Stable slight linear scar in both lung bases and coronary artery calcification Stable large calcified gallstone in gallbladder lumen Prominent plaque at the origin of the celiac artery and SMA may be associated with stenosis
== END 2018-02-12 08:13 | disposition home or self-care (01) ==
LOC: CT 08:12
PROVIDERS: ATTEND Internal Medicine
DX: K80.20 Calculus of gallbladder without cholecystitis without obstruction (principal); K44.9 Diaphragmatic hernia without obstruction or gangrene; K43.9 Ventral hernia without obstruction or gangrene; J98.4 Other disorders of lung; I25.10 Atherosclerotic heart disease of native coronary artery without angina pectoris; I70.0 Atherosclerosis of aorta
CPT/HCPCS: 36415; 74150; 82565; 84520

== ENCOUNTER 2018-03-27 09:17 | Outpatient (CLI) | payer MEDICARE ==
[2018-03-27 10:23] LABS: Blood Urea Nitrogen 13 mg/dL (7-17)
--- NOTE | 2018-03-27 10:39 | Ultrasound Report ---
Abdominal sonogram: History: Calculus gallbladder. Findings: Aortic diameter 1.6 cm. Normal liver. No intrahepatic or extrahepatic duct dilatation. Common bile duct diameter 2.9 mm. Gallbladder wall thickness 3.1 mm. Calculus identified in the gallbladder measuring 1.9 cm. No pericholecystic fluid. Right kidney 10.4 x 4.8 x 4.6 cm. Cortical thickness is 1.3 cm. Left kidney 10.7 x 4.4 x 5.5 cm. Cortical thickness 2.4 cm. Normal pancreas. Spleen measures 9.1 cm. Impression: Single large calculus gallbladder.
--- NOTE | 2018-03-27 11:28 | Cat Scan Report ---
CT scan of neck with IV contrast: History: Soft tissue disorder. Findings: The laryngeal and tracheal air column appears unremarkable. Pre-and paravertebral soft tissue appears normal. There is bilateral symmetric thickening noted of the palatine tonsils. This may be normal or suspicious for tonsillitis. There is no distinct mass or abscess identified. Bilateral normal parotid and submandibular salivary glands. No evidence of adenopathy. Impression: Suspicion of bilateral tonsillitis. Clinical correlation is advised.
== END 2018-03-27 09:18 | disposition home or self-care (01) ==
LOC: US 09:17
PROVIDERS: ATTEND Surgery
DX: K80.20 Calculus of gallbladder without cholecystitis without obstruction (principal); M79.9 Soft tissue disorder, unspecified; F17.210 Nicotine dependence, cigarettes, uncomplicated
CPT/HCPCS: 36415; 70491; 76700; 82565; 84520; Q9967

== ENCOUNTER 2018-04-24 06:03 | Day surgery (SDC) | payer MEDICARE ==
[~2018-04-24 06:03] MED LIST changes: +LACTATED RINGERS 1,000 ML IV SCH; -MARCAINE-EPI 0.5%-1:200,000 INFILTRATI ONE; -NACL 0.9% 1000 ML 1,000 ML IV SCH; -NACL INFILTRATI ONE; -NACL P/F VIAL (10 ML) INFILTRATI ONE; -NEURONTIN PO NR; -TRANEXAMIC ACID IV ONE; -VANCOMYCIN/NS 1 GM/250 ML 250 ML IV NR
[2018-04-24] MEDS ORDERED: NACL BACTERIOSTATIC INFILTRATI ONE (06:39)
[2018-04-24] MEDS ORDERED: XYLOCAINE 1% 20 mL ONE (07:06)
[2018-04-24] MEDS ORDERED: MARCAINE 0.5% 30 ML INFILTRATI ONE (07:08)
[2018-04-24] MEDS ORDERED: XYLOCAINE MPF 2% ONE (07:10)
[2018-04-24] MEDS ORDERED: DECADRON ONE (07:10)
[2018-04-24] MEDS ORDERED: DIPRIVAN 10 MG/ML IV ONE (07:10)
[2018-04-24] MEDS ORDERED: ZEMURON IV ONE (07:10)
[2018-04-24] MEDS ORDERED: ZOFRAN ONE (07:10)
[2018-04-24] MEDS ORDERED: DILAUDID ONE (07:11)
[2018-04-24 07:17] LABS: Basophils % (Auto) 0.5 % (0.0-1.8); Eosinophils # (Auto) 0.2 K/mm3 (0.0-0.4); Hematocrit 41.1 % (30.3-42.9); Lymphocytes # (Auto) 2.3 K/mm3 (1.2-5.4); Lymphocytes % (Auto) 26.8 % (13.4-35.0); Mean Corpuscular HGB Conc 32 % (30-34); Mean Corpuscular Volume 81 fl (79-97); Monocytes # (Auto) 0.5 K/mm3 (0.0-0.8); Monocytes % (Auto) 5.4 % (0.0-7.3); Platelet Count 221 K/mm3 (140-440); Red Blood Count 5.09 M/mm3 (3.65-5.03); Red Cell Distribution Width 15.3 % (13.2-15.2)
[2018-04-24 07:21] LABS: Mean Corpuscular Hemoglobin 26 pg (28-32)
[2018-04-24] MEDS ORDERED: PROVENTIL IH ONE ×3 (07:21→11:57)
[2018-04-24] MEDS ORDERED: MARCAINE-EPI 0.5%-1:200,000 INFILTRATI ONE (07:25)
--- NOTE | 2018-04-24 07:27 | Anesthesia Consultation ---
Anesthesia Consult and Med Hx Date of service: 04/24/18 - Airway Anesthetic Teeth Evaluation: Dentures ROM Head & Neck: Adequate Mental/Hyoid Distance: Adequate Mallampati Class: Class II Intubation Access Assessment: Good - Pulmonary Exam CTA: Yes - Cardiac Exam Cardiac Exam: RRR - Pre-Operative Health Status ASA Pre-Surgery Classification: ASA3 Proposed Anesthetic Plan: General - Pulmonary Hx Smoking: Yes (25+ years, quit 2 weeks ago) Hx Asthma: Yes (INHALERS PRN) Hx Sleep Apnea: No (THIAGO PRE SCREEN HIGH RISK) - Cardiovascular System Hx Hypertension: Yes (10 years) Hx Coronary Artery Disease: Yes (stent x1) Hx Heart Attack/AMI: Yes (5 YRS AGO) Hx Angina: Yes (RARE,NITRO PRN) Hx Peripheral Vascular Disease: Yes (LEGS) - Central Nervous System CVA: Yes (10 YRS AGO - SLURRED SPEECH.) Hx Back Pain: Yes Hx Psychiatric Problems: No - Gastrointestinal Hx Gastroesophageal Reflux Disease: Yes - Endocrine Hx Non-Insulin Dependent Diabetes: Yes - Hematic Hx Anemia: No Hx Sickle Cell Disease: No - Other Systems Hx Alcohol Use: No Hx Substance Use: No Hx Cancer: No Hx Obesity: Yes
--- NOTE | 2018-04-24 07:28 | Anesthesia Day of Surgery ---
Anesthesia Day of Surgery - Day of Surgery Patient Examined: Yes Patient H&P Reviewed: Yes Patient is NPO: Yes
[2018-04-24] MEDS ORDERED: MARCAINE 0.5% INFILTRATI ONE (07:30)
[2018-04-24] MEDS ORDERED: XYLOCAINE 1% 20 mL INFILTRATI ONE (07:30)
[2018-04-24] MEDS ORDERED: NACL 0.9% IR ONE ×2 (07:30)
[2018-04-24 07:31] LABS: BUN/Creatinine Ratio 21; Blood Urea Nitrogen 15 mg/dL (7-17); Calcium 8.8 mg/dL (8.4-10.2); Hemolysis Index 752
[2018-04-24] MEDS ORDERED: PEPCID PO NR (08:00)
[2018-04-24] MEDS ORDERED: ANCEF/STERILE WATER 2 GM/20 ML IV NR (08:00)
[2018-04-24] MEDS ORDERED: NACL 0.9% 1000 ML 1,000 ML ONE ×2 (08:11→11:04)
[2018-04-24] MEDS ORDERED: NEO SYNEPHRINE/NS Syringe(OR USE) IV ONE (08:27)
[2018-04-24] MEDS ORDERED: ZOFRAN IV PRN (10:29)
[2018-04-24] MEDS ORDERED: NACL 0.9% 100 ML ONE (10:30)
[2018-04-24] MEDS ORDERED: NACL 0.9% IV ONE (10:34)
[2018-04-24] MEDS ORDERED: OMNIPAQUE (300 MG) IR ONE (10:35)
[2018-04-24] MEDS ORDERED: LACTATED RINGERS 1,000 ML IV SCH (11:00)
--- NOTE | 2018-04-24 11:37 | Short Stay Summary ---
Short Stay Documentation Date of service: 04/24/18 Narrative H&P: see office H&P - History Principal diagnosis: symptomatic cholelithiasis, soft tissue mass neck, soft tissue mass abdomen H&P: obtained from office - Allergies and Medications Current Medications: Allergies No Known Allergies Allergy (Verified 04/17/18 16:56) Home Medications Medication Instructions Recorded Confirmed Last Taken Type Diltiazem HCl [Diltiazem 24Hr ER] 240 mg PO QDAY 02/06/15 04/24/18 04/24/18 History Lisinopril 40 mg PO DAILY 02/06/15 04/24/18 04/23/18 History Albuterol Sulfate [Albuterol 0.63% 0.63 mg IH TID PRN #1 box 07/05/15 04/24/18 04/23/18 Rx NEBS] Albuterol Sulfate [Ventolin HFA] 2 puff IH Q4H PRN #1 [email or web address] 07/05/1504/23/18 Rx ISOSORBIDE MONOnitrate [Imdur ER] 60 mg PO QDAY 07/05/15 04/24/18 04/24/18 History Nitroglycerin [Nitrostat] 0.4 mg SL Q5M PRN 07/05/15 04/17/18 04/21/17 History Aspirin [Adult Low Dose Aspirin EC] 81 mg PO DAILY 11/20/16 04/24/18 04/23/18 History AtorvaSTATin [Lipitor] 40 mg PO DAILY 11/20/16 04/24/18 04/23/18 History Fluticasone/Salmeterol [Advair 1 puff INHALATION PRN PRN 11/20/16 04/24/1804/21 History Diskus 100-50 mcg] Latanoprost 0.005% 1 drop OP QPM 11/20/16 04/17/18 11/26/16 History [place]-3 Fatty Acids/Fish Oil [Fish 1 cap PO DAILY 11/20/16 04/17/18 04/21/17 History Oil] metFORMIN [Glucophage] 500 mg PO BID 11/20/16 04/24/18 04/23/18 History Furosemide [Lasix TAB] 20 mg PO QDAY 11/27/16 04/24/18 04/21/17 History oxyCODONE /ACETAMINOPHEN [Percocet 1 tab PO Q6H PRN #30 tablet 04/25/1704/22/18 Rx 5/325 mg] Active Medications Hydromorphone HCl (Dilaudid) 0.5 mg IV Q10MIN PRN PRN Reason: Pain , Severe (7-10) Stop: 04/24/18 13:00 Lactated Ringer's (Lactated Ringers) 1,000 mls @ 100 mls/hr IV DIRECT MAR Lactated Ringer's (Lactated Ringers) 1,000 mls @ 42 mls/hr IV DIRECT MAR Midazolam HCl (Versed) 2 mg IV PREOP NR Stop: 04/24/18 23:59 Ondansetron HCl (Zofran) 4 mg IV ONCE PRN PRN Reason: Nausea And Vomiting - Brief post op/procedure progress note Date of procedure: 04/24/18 Pre-op diagnosis: symptomatic cholelithiasis, soft tissue mass neck, soft tissue mass abdomen Post-op diagnosis: same Procedure: 1. Excision soft tissue mass anterior neck - 4.5 cm 2. Excision soft tissue mass anterior left abdominal wall - 10 cm 3. Laparoscopic cholecystectomy, lysis of adhesions, intraoperative cholangiogram Anesthesia: GETA, local Findings: 1. Soft tissue mass, lipoma of anterior neck and left anterior abdominal wall 2. Inflamed gallbladder with adhesions to the omentum. Dense adhesions from omentum and liver to abdominal wall. Surgeon: AMARI OTOOLE Estimated blood loss: minimal Pathology: list (1. gallbladder, 2. soft tissue mass neck, 3. soft tissue mass abdominal wall) Specimen disposition: to lab Condition: stable - Hospital course Hospital course: Patient was observed in the PACU and discharged to home when criteria was met. - Disposition Condition at discharge: Good Disposition: DC-01 TO HOME OR SELFCARE Short Stay Discharge Plan Activity: other (Avoid heavy lifting for the next [address] if taking narcotic pain medications.) Diet: low fat, low cholesterol, low salt Wound: open to air, other (Keep dressing on neck for 2 days and then remove. May shower in 2 days, pat incisions dry, do not scrub. Do not submerge incisions in baths/hottubs/pools until healed. Use abdominal binder but may remove when showering) Additional Instructions: May take ibuprofen or tylenol for pain. If pain is severe, then take prescription pain medications. Follow up with: SHELLEY CANO MD [Primary Care Provider] - 7 Days AMARI OTOOLE DO [Staff Physician] - 14 Days Prescriptions: HYDROcodone/APAP 5-325 [[place] 5/325] 1 each PO Q4HR PRN #15 tablet PRN Reason: Pain
--- NOTE | 2018-04-24 12:04 | Fluoroscopy Report ---
FLUOROSCOPY CHOLANGIOGRAM OPERATIVE History: Calculus of gallbladder. Findings: Fluoroscopy was provided by radiology during intraoperative cholangiogram. A single fluoroscopic image is presented. There is contrast agent in the biliary tree and descending duodenum. Cholecystectomy changes are suspected. The distal common bile duct is unremarkable. The proximal common bile duct is not confidently identified on this limited image. Contrast agent pools near the cystic duct which may represent a biliary leak. Please correlate with the procedural report.
[2018-04-24] MEDS: DILAUDID IV PRN ×2 (12:25→12:35)
[2018-04-24] MEDS ORDERED: ANTIBIOTIC OINT TP ONE (12:36)
--- NOTE | 2018-04-24 13:51 | Operative Report ---
Operative Report Operative Report: Date of procedure: 04/24/18 Pre-op diagnosis: symptomatic cholelithiasis, soft tissue mass neck, soft tissue mass abdomen Post-op diagnosis: same Procedure: 1. Excision soft tissue mass anterior neck - 4.5 cm 2. Excision soft tissue mass anterior left abdominal wall - 10 cm 3. Laparoscopic cholecystectomy, lysis of adhesions, intraoperative cholangiogram Anesthesia: GETA, local Findings: 1. Soft tissue mass, lipoma of anterior neck and left anterior abdominal wall 2. Inflamed gallbladder with adhesions to the omentum. Dense adhesions from omentum and liver to abdominal wall. Surgeon: AMARI OTOOLE Estimated blood loss: minimal Pathology: list (1. gallbladder, 2. soft tissue mass neck, 3. soft tissue mass abdominal wall) Specimen disposition: to lab Condition: stable HPI and indication: The patient is a 67 yo F who was referred to the surgery office with multiple complaints. The patient c/o RUQ pain after eating certain fatty foods and was found to have a large gallstone in the gallbladder. In addition she c/o trouble swallowing and pain in the neck due to a mass. She underwent CT scan of the soft tissues of the neck and no gross pathology was seen involving major structures. She did have a soft palpable superficial soft tissue mass which was felt to be a lipoma on exam. The patient also c/o LUQ abdominal pain related to a mass. On Ct A/P she was found to have a soft tissue mass in the Left upper abdominal subcutaneous tissue and this was palpable on exam. The patient was cleared for surgery by her medical doctor. Because she was symptomatic from all of these findings, she was consented for excision of soft tissue mass of anterior neck and Left upper abdomen and Laparoscopic, possible open cholecystectomy with possible IOC. All risks, benefits, and alternatives of the procedure were discussed with the patient and questions answered. Procedure in detail: The patient was identified in the preoperative area and taken back to the operating room and placed on the OR table in supine position. After anesthesia was induced, the neck was prepped and draped in the usual sterile fashion and a time out performed for the whole procedure. Local anesthetic was infiltrated into the skin and subcutaneous tissue at the intended incision site. A 3 cm horizontal incision was made with a 15 blade over the palpable mass. The dissection was carried down through the skin and subcutaneous tissue using electrocautery. Using a hemostat, the mass was dissected free from the underlying tissue. Once the entire mass was excised, it measured approximately 4.5 cm in greatest diameter and was lobulated, consistent with lipoma. The underlying fascia was intact. The wound was irrigated and hemostasis ensured. The wound was closed in 2 layers. This deep dermal layer was closed using 3-0 Vicryl interrupted sutures and the skin was closed with 4-0 Monocryl subcuticular stitches and skin glue. A Telfa was applied to the incision, covered by 4 x 4 gauze, covered by a Tegaderm. Next, the abdomen was prepped and draped in the usual sterile fashion. I first infiltrated local anesthetic into the skin and subcutaneous tissue over the left upper quadrant soft tissue mass. A horizontal incision was made using a 15 blade over the palpable mass, and dissection carried down through the skin and subcutaneous tissue using Bovie electrocautery. Using a hemostat, the mass was dissected circumferentially from the surrounding tissue and excised. The mass measured 10 cm in greatest diameter and was lobulated, consistent with lipoma. The wound was irrigated and hemostasis achieved. Next, a Veress needle was inserted into the left upper quadrant incision which was approximately at palmers point and placed into the abdomen. The position of the Veress needle was confirmed using saline drop test and the abdomen insufflated to 15 mmHg. Once the abdomen was adequately insufflated, an incision was made in the right upper quadrant using a 15 blade and a 5 mm Optiview trocar was placed through this incision under direct visualization. Upon inspection of the abdomen, there was no underlying injury any of the abdominal contents. There were however dense adhesions from the omentum to the anterior abdominal wall in the area of the patient's old scar. The Veress needle was identified and there was no underlying injury seen in its path. The Veress needle was then removed. An additional 5 mm right midabdominal trocar was placed under direct visualization. Adhesions from the omentum to the anterior abdominal wall were carefully taken down using a combination of sharp dissection and electrocautery using the Endo Angeli. Once there was enough room for a camera trocar, a 5 mm trocar was placed at the umbilicus. A epigastric 12 mm trocar was also placed under direct visualization. The patient was placed in reverse Trendelenburg and tilted to the left. The gallbladder was not visible as it was scarred under omentum. The omentum was also adhesed liver. Using the Harmonic, these adhesions were meticulously dissected with great care taken to not injure surrounding structures. Adhesions from the liver to the anterior abdominal wall were also taken down using Harmonic. Once the gallbladder was visualized, it was grasped and lifted cephalad and above the liver. Adhesions were continuously taken down using a combination of blunt dissection and harmonic scalpel until the neck of the gallbladder was identified. Lysis of adhesions took approximately 45 minutes. There was a large single stone in the neck of the gallbladder. The gallbladder was dissected free from the liver bed in a dome down fashion using the harmonic scalpel. Once the neck of the gallbladder was reached, the single stone was milked upwards into the body of the gallbladder and the cystic duct and artery were skeletonized. These were the only 2 structures seen entering the gallbladder and the critical view was obtained. The cystic artery was ligated using the Harmonic scalpel. A staple was placed distally on the cystic duct and a ductotomy was created with Endo Angeli. Through this, a pediatric feeding tube was passed and clamped. This was tested with injectable saline, and there was no leakage of fluid. A cholangiogram was then performed using Omnipaque dye. During the cholangiogram, the cystic duct, common bile duct, hepatic ducts and branches were visible and there was contrast seen filling the duodenum. There were no obvious filling defects. The cholangiogram catheter was then removed and 3 clips placed on the proximal aspect of the cystic duct. The remaining duct was transected using the EndoShears. The gallbladder was placed into an Endo Catch bag, and removed from the abdomen via the 12 mm epigastric port. The liver bed was inspected and there was no bleeding or bile leakage. The cystic duct clips were visible and intact. The liver bed was irrigated and the irrigant returned clear. The 12 mm port fascia was closed using a 0 Vicryl stitch with the Tyron Kelly device. Remaining ports were removed under direct visualization and the abdomen desufflated. The skin incisions were infiltrated with local anesthetic and closed using 4-0 Monocryl subcuticular stitches and skin glue. The left upper quadrant incision was closed in a 2 layer fashion. The subcutaneous layer was closed using 3-0 Vicryl interrupted sutures and the skin was closed with 4-0 Monocryl subcuticular stitches and skin glue. An abdominal binder was applied to the patient. At the end of the case, all sponge, instrument, sharp counts were correct 2. The patient was awoken from anesthesia and extubated, taken to PACU in stable condition.
[2018-04-24 15:57] VITALS: BP 157/70
== END 2018-04-24 15:45 | disposition home or self-care (01) ==
LOC: OR 06:03
PROVIDERS: ATTEND Surgery
DX: K80.10 Calculus of gallbladder with chronic cholecystitis without obstruction (principal); D17.0 Benign lipomatous neoplasm of skin and subcutaneous tissue of head, face and neck; M79.89 Other specified soft tissue disorders; E11.9 Type 2 diabetes mellitus without complications; I69.021 Dysphasia following nontraumatic subarachnoid hemorrhage; J45.909 Unspecified asthma, uncomplicated; I10 Essential (primary) hypertension; I25.10 Atherosclerotic heart disease of native coronary artery without angina pectoris; I25.2 Old myocardial infarction; I73.9 Peripheral vascular disease, unspecified; K21.9 Gastro-esophageal reflux disease without esophagitis; E66.01 Morbid (severe) obesity due to excess calories; Z68.41 Body mass index [BMI] 40.0-44.9, adult; Z87.891 Personal history of nicotine dependence; Z79.82 Long term (current) use of aspirin; Z79.899 Other long term (current) drug therapy; Z79.84 Long term (current) use of oral hypoglycemic drugs
CPT/HCPCS: 21552; 22903; 36415; 47563; 74300; 80048; 82962; 85025; 88304; 88307; A4217; J0690; J1100; J1170; J2370; J2405; J2704; J7030; J7120; Q9967

== ENCOUNTER 2018-05-28 13:10 | Outpatient (CLI) | payer MEDICARE ==
--- NOTE | 2018-05-28 17:01 | Cat Scan Report ---
FINAL REPORT EXAM: CT CHEST WO CON HISTORY: SHORTNESS OF BREATH COMPARISON: CT of the chest performed on 12/10/2016 TECHNIQUE: Multiple contiguous axial images were obtained from the thoracic inlet to upper abdomen without administration of IV contrast. Reformatted sagittal and coronal images were available for review. FINDINGS: Medical devices: None. Thyroid: Normal. Lymph nodes: No significant mediastinal, hilar, or axillary lymphadenopathy. Vasculature: Normal caliber of the thoracic aorta. Scattered atherosclerotic calcifications. Normal branching pattern of the aortic arch. Normal caliber of the pulmonary artery. Heart: Normal heart size. Moderate coronary artery calcifications. Other mediastinal structures: Normal. Lung parenchyma: Mild diffuse centrilobular emphysematous change, most prominent in the bilateral upper lobes. No suspicious nodule or mass. No focal consolidation. Airways: Patent. No bronchiectasis. Pleura: No pleural effusion or pneumothorax. Chest wall and spine: No suspicious osseous lesions. No acute fracture or dislocation. Multilevel degenerative changes. Soft tissues are normal. Upper Abdomen: Normal. IMPRESSION: Mild diffuse centrilobular emphysematous changes. No suspicious nodule or mass. No focal consolidation.
== END 2018-05-28 13:11 | disposition home or self-care (01) ==
LOC: CT 13:10
PROVIDERS: ATTEND Otolaryngology
DX: J43.2 Centrilobular emphysema (principal); E11.9 Type 2 diabetes mellitus without complications; J45.909 Unspecified asthma, uncomplicated; D64.9 Anemia, unspecified; I25.10 Atherosclerotic heart disease of native coronary artery without angina pectoris; I10 Essential (primary) hypertension; E78.00 Pure hypercholesterolemia, unspecified; E66.9 Obesity, unspecified; F32.9 Major depressive disorder, single episode, unspecified; F41.9 Anxiety disorder, unspecified; Z87.891 Personal history of nicotine dependence
CPT/HCPCS: 71250

== ENCOUNTER 2018-06-01 08:20 | Outpatient (CLI) | payer MEDICARE ==
--- NOTE | 2018-06-01 11:36 | Fluoroscopy Report ---
MODIFIED BARIUM SWALLOW History: Unspecified voice and resonance disorder. Findings: Video radiography was provided by the radiologist for speech therapy to assess the swallowing mechanism. 1 fluoroscopic image was captured. Impression: Successful modified barium swallow.
== END 2018-06-01 08:21 | disposition home or self-care (01) ==
LOC: PT 08:20
PROVIDERS: ATTEND Otolaryngology
DX: R49.9 Unspecified voice and resonance disorder (principal); E11.9 Type 2 diabetes mellitus without complications; J45.909 Unspecified asthma, uncomplicated; I25.10 Atherosclerotic heart disease of native coronary artery without angina pectoris; D64.9 Anemia, unspecified; I10 Essential (primary) hypertension; E78.00 Pure hypercholesterolemia, unspecified; E66.9 Obesity, unspecified; F41.9 Anxiety disorder, unspecified; F32.9 Major depressive disorder, single episode, unspecified; F17.219 Nicotine dependence, cigarettes, with unspecified nicotine-induced disorders
CPT/HCPCS: 74230; 92611; G8996; G8997; G8998

== ENCOUNTER 2018-08-13 08:21 | Outpatient (CLI) | payer MEDICARE ==
--- NOTE | 2018-08-13 15:49 | Mammography Report ---
BILATERAL DIGITAL SCREENING MAMMOGRAM with CAD: 08/13/18 08:21:00 CLINICAL: Routine screening.History of a bilateral reduction mammoplasty. She has no nipples. COMPARISON:None. FINDINGS: The breasts are mostly fatty. Motion blur and a 1.6 cm oval partially circumscribed asymmetry on the right MLO view require additional imaging. No architectural distortion or suspicious calcifications.The left breast is negative. IMPRESSION: Right motion blur and asymmetry requiring further workup. BI-RADS CATEGORY: 0 -- Additional Imaging Evaluation Required RECOMMENDATION: Recall for right and exaggerated CC and MLO views without and with spot compression and right breast ultrasound. ACR BI-RADS MAMMOGRAPHIC CODES: 0 = Needs additional imaging evaluation; 1 = Negative; 2 = Benign; 3 = Probably benign; 4 = Suspicious; 5 = Malignant; 6 = Known biopsy-proven malignancy COMMENT: 1. Dense breast tissue, i.e., adenosis, fibrocystic changes, etc., may obscure an underlying neoplasm. 2. Approximately 10% of cancers are not detected with mammography. 3. A negative mammography report should not delay biopsy if a clinically suspicious mass is present. COMMENT: Patient follow-up letters are generated via our [employer] application.
== END 2018-08-13 08:22 | disposition home or self-care (01) ==
LOC: MAMMO 08:21
PROVIDERS: ATTEND Internal Medicine
DX: Z12.31 Encounter for screening mammogram for malignant neoplasm of breast (principal); J45.909 Unspecified asthma, uncomplicated; I25.10 Atherosclerotic heart disease of native coronary artery without angina pectoris; E11.9 Type 2 diabetes mellitus without complications; Z87.891 Personal history of nicotine dependence
CPT/HCPCS: 77067

== ENCOUNTER 2019-01-13 09:30 | Outpatient (CLI) | payer MEDICARE ==
[2019-01-13 10:53] LABS: Alanine Aminotransferase 11 units/L (7-56); Albumin 4.2 g/dL (3.9-5); BUN/Creatinine Ratio 25; Blood Urea Nitrogen 20 mg/dL (7-17); Calcium 9.5 mg/dL (8.4-10.2); Chol/HDL Ratio 3.12 %; HDL Cholesterol 58 mg/dL (40-59); Hemolysis Index 5; LDL Cholesterol,Direct 129 mg/dL (50-130)
== END 2019-01-13 09:31 | disposition home or self-care (01) ==
LOC: LAB 09:30
PROVIDERS: ATTEND Internal Medicine
DX: E11.9 Type 2 diabetes mellitus without complications (principal); E66.01 Morbid (severe) obesity due to excess calories; E55.9 Vitamin D deficiency, unspecified; J44.9 Chronic obstructive pulmonary disease, unspecified; E78.5 Hyperlipidemia, unspecified; K21.9 Gastro-esophageal reflux disease without esophagitis; I11.0 Hypertensive heart disease with heart failure; I50.9 Heart failure, unspecified; E78.00 Pure hypercholesterolemia, unspecified; M19.90 Unspecified osteoarthritis, unspecified site; Z87.891 Personal history of nicotine dependence
CPT/HCPCS: 36415; 80053; 80061; 82306; 82607; 83036

== ENCOUNTER 2019-01-18 08:35 | Outpatient (CLI) | payer MEDICARE ==
--- NOTE | 2019-01-18 13:52 | XRay Report ---
XRAYCERVICAL SPINE THREE VIEWS: 01/18/19 08:35:00 CLINICAL: Bilateral shoulder pain and arm radiculopathy. FINDINGS: Straightening of the C-spine with loss of the normal cervical lordosis. Normal vertebral body alignment. Moderate degenerative change with decreased height of the C4, C5 and C6 vertebral bodies. Anterior osteophytes from C5-6 through C7-T1. Disc space narrowing at C6-7 and C7-T1. Multilevel facet joint sclerosis. No fracture. The odontoid and C1 are intact. Normal soft tissues. IMPRESSION: Moderate multilevel degenerative disc disease and bilateral facet joint arthropathy.
== END 2019-01-18 08:36 | disposition home or self-care (01) ==
LOC: XRAY 08:35
PROVIDERS: ATTEND Internal Medicine Cardiovascular Disease
DX: M19.012 Primary osteoarthritis, left shoulder (principal); M19.011 Primary osteoarthritis, right shoulder; G54.8 Other nerve root and plexus disorders; I11.0 Hypertensive heart disease with heart failure; I50.9 Heart failure, unspecified; J45.909 Unspecified asthma, uncomplicated; E11.9 Type 2 diabetes mellitus without complications; E78.5 Hyperlipidemia, unspecified; K21.9 Gastro-esophageal reflux disease without esophagitis; Z90.89 Acquired absence of other organs; E78.00 Pure hypercholesterolemia, unspecified
CPT/HCPCS: 72040

== ENCOUNTER 2019-03-04 11:50 | Outpatient (CLI) | payer MEDICARE ==
--- NOTE | 2019-03-04 15:29 | Mammography Report ---
RIGHT DIGITAL DIAGNOSTIC MAMMOGRAM with CAD and RIGHT BREAST ULTRASOUND: 03/04/19 11:50:00 CLINICAL: Follow-up of mammographic asymmetries and masses by ultrasound.History reduction mammoplasty. COMPARISON:10/07/18 FINDINGS: Routine views plus an exaggerated CC view were performed. The patient would not allow the technologist to position her far enough posterior and adequately cover the areas that were identified on the last mammogram. However, the portions of mammographic asymmetries that are included are less prominent than on the last mammogram. Ultrasound of the upper-outer right breast was performed and was compared to the previous ultrasound. No hyperechoic lesions are identified to correlate with previously described hyperechoic masses. A cyst at 10 o'clock 5 cm from the nipple measures 3 mm in this location correlates with one of the previously identified hyperechoic masses. In addition, a suspicious focus of shadowing is identified at 10 o'clock 7 cm from the nipple. A poorly marginated hypoechoic mass produces a shadow measures 4 x 3 x 4 mm. IMPRESSION: A suspicious 4 mm shadowing mass at 10 o'clock. Although this may be a focus of benign fat necrosis, recommend ultrasound-guided vacuum-assisted core biopsy to exclude malignancy.Previously identified hyperechoic masses which are typical of benign fat necrosis have resolved. BI-RADS CATEGORY: 4--Suspicious I discussed the findings and the recommendation for needle core biopsy of the right breast with the patient at the time of the examination. COMMENT: 1. Dense breast tissue, i.e., adenosis, fibrocystic changes, etc., may obscure an underlying neoplasm. 2. Approximately 10% of cancers are not detected with mammography. 3. A negative mammography report should not delay biopsy if a clinically suspicious mass is present. COMMENT: Patient follow-up letters are generated by our [employer] application.
== END 2019-03-04 11:51 | disposition home or self-care (01) ==
LOC: SPVWC 11:50
PROVIDERS: ATTEND Internal Medicine
DX: R92.8 Other abnormal and inconclusive findings on diagnostic imaging of breast (principal); I11.0 Hypertensive heart disease with heart failure; I50.9 Heart failure, unspecified; E78.00 Pure hypercholesterolemia, unspecified; J45.909 Unspecified asthma, uncomplicated; K21.9 Gastro-esophageal reflux disease without esophagitis; E11.9 Type 2 diabetes mellitus without complications; Z90.89 Acquired absence of other organs

== ENCOUNTER 2019-03-18 08:40 | Outpatient (CLI) | payer MEDICARE ==
[2019-03-18 09:15] LABS: Basophils % (Auto) 0.5 % (0.0-1.8); Eosinophils # (Auto) 0.1 K/mm3 (0.0-0.4); Eosinophils % (Auto) 1.1 % (0.0-4.3); Hematocrit 33.8 % (30.3-42.9); Hemoglobin 10.6 gm/dl (10.1-14.3); Lymphocytes # (Auto) 1.5 K/mm3 (1.2-5.4); Lymphocytes % (Auto) 21.8 % (13.4-35.0); Mean Corpuscular HGB Conc 31 % (30-34); Mean Corpuscular Volume 78 fl (79-97); Monocytes # (Auto) 0.4 K/mm3 (0.0-0.8); Monocytes % (Auto) 5.5 % (0.0-7.3); Platelet Count 250 K/mm3 (140-440); Red Blood Count 4.36 M/mm3 (3.65-5.03); Red Cell Distribution Width 19.4 % (13.2-15.2)
[2019-03-18 09:52] LABS: Erythrocyte Sedimentation Rate 31 mm/Hr (0-20)
== END 2019-03-18 08:41 | disposition home or self-care (01) ==
LOC: LAB 08:40
PROVIDERS: ATTEND Registered Nurse Orthopedic
DX: T84.84XA Pain due to internal orthopedic prosthetic devices, implants and grafts, initial encounter (principal); I11.0 Hypertensive heart disease with heart failure; I50.9 Heart failure, unspecified; E78.00 Pure hypercholesterolemia, unspecified; K21.9 Gastro-esophageal reflux disease without esophagitis; J45.909 Unspecified asthma, uncomplicated; E11.9 Type 2 diabetes mellitus without complications
CPT/HCPCS: 36415; 85025; 85652; 86140

== ENCOUNTER 2019-04-14 11:21 | Outpatient (CLI) | payer MEDICARE ==
--- NOTE | 2019-04-14 14:16 | Ultrasound Report ---
VACUUM ASSISTED ULTRASOUND GUIDED NEEDLE CORE BIOPSY WITH CLIP PLACEMENT RIGHT BREAST: 04/14/19 11:21:00 CLINICAL: A 4 mm shadowing right breast mass at 10 o'clock 7 cm from the nipple. COMPARISON :03/04/19 FINDINGS: The procedure was explained to the patient and informed consent was obtained. Ultrasound demonstrated the previously described lesion. The skin was prepped with Betadine and anesthetized with 1% lidocaine. Vacuum-assisted needle core biopsy was performed through a small dermatotomy using ultrasound guidance, 2% lidocaine with epinephrine for deep anesthesia and a 13.0-gauge Mammotome Elite biopsy probe. Multiple cores were obtained and placed in formalin. An 11-gauge Mammostar barbell shape clip was deployed at the biopsy site. Hemostasis was achieved with minimal pressure and a sterile dressing was applied. The patient tolerated the procedure well and there were no apparent complications. A two view mammogram demonstrated concordant clip placement. The patient left the department in good condition and was given instructions for wound care and follow up. IMPRESSION: Uncomplicated vacuum-assisted ultrasound core biopsy and clip placement right breast.
--- NOTE | 2019-04-14 14:17 | Mammography Report ---
RIGHT DIGITAL DIAGNOSTIC MAMMOGRAM: 04/14/19 11:21:00 CLINICAL: For clip placement immediately status post ultrasound biopsy. COMPARISON:03/04/19 FINDINGS: A biopsy clip is now identified at 10 o'clock and correlates with the biopsy site. The biopsy clip is adjacent to a 4 mm benign calcification. IMPRESSION: Concordant clip placement status post ultrasound biopsy. BI-RADS CATEGORY: 4--Suspicious Pathology pending.
== END 2019-04-14 11:22 | disposition home or self-care (01) ==
LOC: SPVWC 11:21
PROVIDERS: ATTEND Family Medicine
DX: D05.11 Intraductal carcinoma in situ of right breast (principal); R92.0 Mammographic microcalcification found on diagnostic imaging of breast; J45.909 Unspecified asthma, uncomplicated; E78.5 Hyperlipidemia, unspecified; K21.9 Gastro-esophageal reflux disease without esophagitis; E11.51 Type 2 diabetes mellitus with diabetic peripheral angiopathy without gangrene; E11.39 Type 2 diabetes mellitus with other diabetic ophthalmic complication; H40.9 Unspecified glaucoma; I11.0 Hypertensive heart disease with heart failure; I50.9 Heart failure, unspecified; M19.90 Unspecified osteoarthritis, unspecified site; F32.9 Major depressive disorder, single episode, unspecified; I25.119 Atherosclerotic heart disease of native coronary artery with unspecified angina pectoris; F41.9 Anxiety disorder, unspecified; F17.210 Nicotine dependence, cigarettes, uncomplicated; Z98.890 Other specified postprocedural states; Z79.84 Long term (current) use of oral hypoglycemic drugs; Z79.899 Other long term (current) drug therapy; Z79.82 Long term (current) use of aspirin; Z95.5 Presence of coronary angioplasty implant and graft; Z87.440 Personal history of urinary (tract) infections; Z96.651 Presence of right artificial knee joint; Z86.73 Personal history of transient ischemic attack (TIA), and cerebral infarction without residual deficits
CPT/HCPCS: 88305; 88341; 88342

== ENCOUNTER 2019-12-31 09:39 | Outpatient (CLI) | payer MEDICARE ==
--- NOTE | 2019-12-31 11:56 | Vascular Lab Report ---
RIGHT UPPER EXTREMITY VENOUS DOPPLER ULTRASOUND HISTORY: Right upper extremity swelling for one month, breast cancer COMPARISON: None. TECHNIQUE: Grayscale, color and spectral Doppler imaging of the venous system of the right upper extr emity was performed. FINDINGS: Internal Jugular Vein: Normal grayscale appearance and flow. Subclavian Vein: Normal grayscale appearance and flow. Axillary Vein: Normal venous flow, compressibility and augmentation. Brachial vein: Normal venous flow, compressibility and augmentation. Radial vein: Normal venous flow, compressibility and augmentation. Ulnar vein: Normal venous flow, compressibility and augmentation. Additional Findings: None. IMPRESSION: 1. No sonographic evidence of deep venous thrombosis in the right upper extremity. Signer Name: Rajendra Mitchell Jr, MD Signed: 12/31/2019 11:52 AM Workstation Name: [id number]
--- NOTE | 2020-01-03 09:48 | Mammography Report ---
BONE DEXA CLINICAL: Postmenopausal. TECHNIQUE: 2 site bone DEXA performed on an Hologic scanner. FINDINGS: The average BMD of the lumbar spine L1-L4 is 1.4-3g/cm squared with a T score of +3.4 and a Z score o f +4.8. The average total BMD of the left hip is 1.037 g/cm squared with a T score of +0.8and a Z score of +1 .2. IMPRESSION: 1. WHO classification: Normal with average fracture risk based on spine measurements. 2. WHO classification Normal with average fracture risk based on left hip measurements. RECOMMENDATION: Clinical correlation and routine screening. Definitions: BMD equal bone mineral density T score = BMD related to peak bone mass of young adult ([place] expressed an standard deviation) Z score = age-matched BMD expressed in SD World health organization (WHO) diagnostic criteria Normal T score greater than equal to 1 standard deviation Osteopenia T score between -1 and -2.4 standard deviation Osteoporosis T score -2.5 standard deviation or below. Note: BMD is not the only risk factor for fracture; also consider factors such as the patient's age, risk of falling, previous osteoporotic fracture, family history of osteoporotic fractures, current sm oker and low body weight. Z scores are not calculated if greater than 80 years of age. Signer Name: Socrates Torres MD Signed: 01/03/2020 9:44 AM Workstation Name: [id number]
== END 2019-12-31 09:40 | disposition home or self-care (01) ==
LOC: VAS 09:39
PROVIDERS: ATTEND Internal Medicine Hematology & Oncology
DX: I25.10 Atherosclerotic heart disease of native coronary artery without angina pectoris (principal); D05.10 Intraductal carcinoma in situ of unspecified breast; I10 Essential (primary) hypertension; E78.5 Hyperlipidemia, unspecified; E66.01 Morbid (severe) obesity due to excess calories; F17.210 Nicotine dependence, cigarettes, uncomplicated; R22.41 Localized swelling, mass and lump, right lower limb; F17.200 Nicotine dependence, unspecified, uncomplicated; E11.9 Type 2 diabetes mellitus without complications; J45.909 Unspecified asthma, uncomplicated; N95.9 Unspecified menopausal and perimenopausal disorder; Z79.82 Long term (current) use of aspirin; Z79.899 Other long term (current) drug therapy; Z91.89 Other specified personal risk factors, not elsewhere classified
CPT/HCPCS: 77080

== ENCOUNTER 2020-09-12 07:54 | Outpatient (CLI) | payer MEDICARE ==
--- NOTE | 2020-09-12 09:25 | Mammography Report ---
DIGITAL SCREENING MAMMOGRAM WITH CAD, 09/12/2020 CLINICAL INFORMATION / INDICATION: Routine screening mammography. Patient has had partial right maste ctomy for breast carcinoma. Patient did not want remaining right breast tissue imaged. TECHNIQUE: Digital left 2D mammography was obtained in the craniocaudal and mediolateral oblique pro jections. This examination was interpreted with the benefit of Computer-Aided Detection analysis. COMPARISON: 08/13/2018 FINDINGS: Breast Density: The breasts are almost entirely fatty. No dominant mass, suspicious calcifications, or architectural distortion in the left breast. Small oil cyst is present in the subareolar region as well as a few benign calcifications. Overall no interval change from the 2018 exam. IMPRESSION: No mammographic evidence of malignancy. Follow up recommendation: Routine yearly BI-RADS Category 2: Benign. A "normal" or negative report should not discourage follow up or biopsy of a clinically significant f inding. A written summary of these findings will be mailed to the patient. The patient will be entered into a mammography reporting system which will generate a reminder letter for the patient's next appointmen t at the appropriate interval. The [employer] recommends yearly mammograms starting at age 40 and continuing as l brynn as a woman is in good health. Breast MRI is recommended for women with an approximate 20-25% or greater lifetime risk of breast cancer, including women with a strong family history of breast or ova selam cancer or who have been treated for Hodgkin's disease. Signer Name: Jane Villa MD Signed: 09/12/2020 9:21 AM Workstation Name: [id number]
--- NOTE | 2020-09-12 09:51 | XRay Report ---
RIGHT SHOULDER 3 VIEW(S) INDICATION / CLINICAL INFORMATION: PAIN M25.511 COMPARISON: Right shoulder radiograph 09/08/2010 FINDINGS: BONES / JOINT(S): No acute fracture or subluxation. Anatomical joint alignment. Degenerative osteoart hrosis which is significantly progressed when compared to 05/09/2010 with severe AC joint degenerative arthrosis. SOFT TISSUES: No significant abnormality. ADDITIONAL FINDINGS: None. Signer Name: Brayden Zendejas MD Signed: 09/12/2020 9:46 AM Workstation Name: [id number]
== END 2020-09-12 07:55 | disposition home or self-care (01) ==
LOC: MAMMO 07:54
PROVIDERS: ATTEND Internal Medicine Hematology & Oncology
DX: Z12.31 Encounter for screening mammogram for malignant neoplasm of breast (principal); M19.011 Primary osteoarthritis, right shoulder

== ENCOUNTER 2020-09-20 09:19 | Outpatient (CLI) | payer MEDICARE ==
[2020-09-20 10:36] LABS: Chol/HDL Ratio 2.92 %
== END 2020-09-20 09:20 | disposition home or self-care (01) ==
LOC: LAB 09:19
PROVIDERS: ATTEND Internal Medicine
DX: E11.59 Type 2 diabetes mellitus with other circulatory complications (principal); E78.5 Hyperlipidemia, unspecified
CPT/HCPCS: 36415; 80061; 83036

== ENCOUNTER 2021-02-16 10:10 | Outpatient (CLI) | payer MEDICARE ==
[2021-02-16 10:46] LABS: Hematocrit 40.6 % (30.3-42.9)
[2021-02-16 11:05] LABS: Chol/HDL Ratio 2.5 %
== END 2021-02-16 10:11 | disposition home or self-care (01) ==
LOC: LAB 10:10
PROVIDERS: ATTEND Internal Medicine
DX: E11.9 Type 2 diabetes mellitus without complications (principal); E78.5 Hyperlipidemia, unspecified
CPT/HCPCS: 36415; 80061; 85014; 85018

== ENCOUNTER 2021-06-01 09:45 | Outpatient (CLI) | payer MEDICARE | END 2021-06-01 09:46 | disposition home or self-care (01) | LOC: LAB 09:45 | PROVIDERS: ATTEND Internal Medicine | DX: E11.9 Type 2 diabetes mellitus without complications (principal) | CPT/HCPCS: 36415; 83036 ==

== ENCOUNTER 2021-06-20 09:46 | Outpatient (CLI) | payer MEDICARE ==
--- NOTE | 2021-06-20 11:52 | Magnetic Resonance Report ---
MR RIGHT SHOULDER WITHOUT CONTRAST HISTORY: Primary osteoarthritis right shoulder COMPARISON: Right shoulder x-ray 09/12/2020 TECHNIQUE: Routine noncontrast MRI of the right shoulder obtained. CONTRAST: None. FINDINGS: Supraspinatus tendon: There is moderate thickening and increased intrinsic signal in the distal supra spinatus tendon consistent with moderate to severe tendinosis. No full-thickness tear is detected. Infraspinatus tendon: No significant abnormality. Teres Minor tendon: No significant abnormality. Subscapularis tendon: There is mild thickening and increased intrinsic signal in the supraspinatus te ndon consistent with mild tendinosis. No full-thickness tear. Biceps Tendon: No significant abnormality. Acromioclavicular Joint: Moderate to severe hypertrophic osteoarthrosis is identified impingement on the supraspinatus tendon cannot be excluded. Labrum: Mild circumferential fraying but no discrete tear or separation. Bone Marrow: No acute osseous abnormality or bone lesion. Moderate to severe hypertrophic osteoarthro sis of the AC joint is again noted. Mild osteoarthrosis at the glenohumeral joint. 8 mm degenerative subchondral cyst in the lateral humeral head is noted. Muscles: No significant abnormality. Inferior Glenohumeral ligament and Rotator Interval: No significant abnormality. Additional Findings: Trace joint effusion. Small fluid in the subacromial/subdeltoid bursa. IMPRESSION: Moderate to severe tendinosis of the distal supraspinatus tendon. Mild tendinosis of the subscapularis tendon. No full-thickness rotator cuff tear is detected. 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 Mild osteoarthritis at the glenohumer al joint. Signer Name: Rajendra Mitchell Jr, MD Signed: 06/20/2021 11:48 AM Workstation Name: [id number]
== END 2021-06-20 09:47 | disposition home or self-care (01) ==
LOC: MRI 09:46
PROVIDERS: ATTEND Orthopaedic Surgery
DX: M19.011 Primary osteoarthritis, right shoulder (principal); M75.121 Complete rotator cuff tear or rupture of right shoulder, not specified as traumatic; M75.41 Impingement syndrome of right shoulder; M77.8 Other enthesopathies, not elsewhere classified

== ENCOUNTER 2021-09-14 09:10 | Outpatient (CLI) | payer MEDICARE ==
--- NOTE | 2021-09-15 11:33 | Mammography Report ---
DIGITAL SCREENING MAMMOGRAM WITH CAD, 09/14/2021 CLINICAL INFORMATION / INDICATION: Routine screening mammography. SCREENING MAMMOGRAM TECHNIQUE: Digital bilateral 2D mammography was obtained in the craniocaudal and mediolateral obliqu e projections. This examination was interpreted with the benefit of Computer-Aided Detection analysis . COMPARISON: 09/12/2020 and 04/14/2019 FINDINGS: Breast Density: There are scattered areas of fibroglandular density. No dominant mass, suspicious calcifications, or architectural distortion in either breast. Old postoperative change on the right. IMPRESSION: No mammographic evidence of malignancy. Follow up recommendation: Routine yearly BI-RADS Category 2: Benign. A "normal" or negative report should not discourage follow up or biopsy of a clinically significant f inding. A written summary of these findings will be mailed to the patient. The patient will be entered into a mammography reporting system which will generate a reminder letter for the patient's next appointmen t at the appropriate interval. The [employer] recommends yearly mammograms starting at age 40 and continuing as l brynn as a woman is in good health. Breast MRI is recommended for women with an approximate 20-25% or greater lifetime risk of breast cancer, including women with a strong family history of breast or ova selam cancer or who have been treated for Hodgkin's disease. Signer Name: Homero Bateman MD Signed: 09/15/2021 11:28 AM Workstation Name: [id number]
== END 2021-09-14 09:11 | disposition home or self-care (01) ==
LOC: MAMMO 09:10
PROVIDERS: ATTEND Internal Medicine Hematology & Oncology
DX: Z12.31 Encounter for screening mammogram for malignant neoplasm of breast (principal)
CPT/HCPCS: 77067

== ENCOUNTER 2021-10-26 09:54 | Outpatient (CLI) | payer MEDICARE ==
[2021-10-26 10:33] LABS: Bilirubin,Urine NEG (Negative); Blood,Urine MOD (Negative); Color,Urine Yellow (Yellow); Mucus,Urine FEW /HPF; Urobilinogen,Urine < 2.0 mg/dL (<2.0)
[2021-10-26 11:10] LABS: Chol/HDL Ratio 3.88 %
[2021-10-26 14:31] LABS: Creatinine,Urine 108.6 mg/dL (0.1-20.0)
[2021-10-26 14:34] LABS: Microalbumin/Creatinine Ratio 70.9 ug/mg
== END 2021-10-26 09:55 | disposition home or self-care (01) ==
LOC: LAB 09:54
PROVIDERS: ATTEND Internal Medicine
DX: E55.9 Vitamin D deficiency, unspecified (principal); E78.5 Hyperlipidemia, unspecified; N39.0 Urinary tract infection, site not specified; E11.59 Type 2 diabetes mellitus with other circulatory complications; R53.83 Other fatigue; R80.9 Proteinuria, unspecified
CPT/HCPCS: 36415; 80061; 81001; 82043; 82306; 83036; 84443

== ENCOUNTER 2022-02-01 11:56 | Outpatient (CLI) | payer MEDICARE ==
--- NOTE | 2022-02-01 15:41 | Mammography Report ---
DEXA BONE DENSITY SCAN INDICATION / CLINICAL INFORMATION: Z13.820. 71 years Female COMPARISON: 12/31/2019 LUMBAR SPINE, L1-L4: - Bone mineral density (BMD) = 1.484 g/cm2. - T-score = 4.0 - Change (%) since most recent prior (if available): +4.3 LEFT HIP, NECK : - Bone mineral density (BMD) = 0.828 g/cm2. - T-score = -0.2 - Change (%) since most recent prior (if available): -1.3 IMPRESSION: 1. WHO Classification: Normal bone density. Fracture Risk: Not Increased. 2. 10-Year Fracture Risk (FRAX) = Major Osteoporotic Not reported.% / Hip: Not reported.% FRAX generally not reported for patients with normal or osteoporotic BMD, in qqb-qzgzsra-icurdci raj ents younger than age 50, or in patients undergoing pharmacotherapy BMD Reporting Guidelines (ISCD, 2015) BMD Reporting in Postmenopausal Women and in Men Age 50 and Older - T-scores are preferred. - The WHO densitometric classification is applicable. BMD Reporting in Females Prior to Menopause and in Males Younger Than Age 50 - Z-scores, not T-scores, are preferred. This is particularly important in children. - A Z-score of -2.0 or lower is defined as below the expected range for age, and a Z-score above -2.0 is within the expected range for age. - Osteoporosis cannot be diagnosed in men under age 50 on the basis of BMD alone. - The WHO diagnostic criteria may be applied to women in the menopausal transition. http://www.iscd.org/official-positions/1073-vxfj-oeloglwl-positions-adult/ Signer Name: Jules Torres MD Signed: 02/01/2022 3:37 PM Workstation Name: [id number]
== END 2022-02-01 11:57 | disposition home or self-care (01) ==
LOC: MAMMO 11:56
PROVIDERS: ATTEND Internal Medicine Hematology & Oncology
DX: Z13.820 Encounter for screening for osteoporosis (principal); Z78.0 Asymptomatic menopausal state
CPT/HCPCS: 77080

== ENCOUNTER 2022-03-01 10:24 | Outpatient (CLI) | payer MEDICARE | END 2022-03-01 10:25 | disposition home or self-care (01) | LOC: LAB 10:24 | PROVIDERS: ATTEND Internal Medicine | DX: E11.59 Type 2 diabetes mellitus with other circulatory complications (principal) | CPT/HCPCS: 36415; 83036 ==

== ENCOUNTER 2022-06-13 09:22 | Outpatient (CLI) | payer MEDICARE ==
--- NOTE | 2022-06-13 10:38 | XRay Report ---
Right shoulder 3 views INDICATION: Shoulder pain FINDINGS: Glenohumeral and AC degenerative change. There may be encroachment from enthesophyte extend ing inferiorly from the acromion. No acute fracture or dislocation is definite seen. IMPRESSION: Degenerative change and AC joint and glenohumeral joint Signer Name: Mani Pickard MD Signed: 06/13/2022 10:34 AM Workstation Name: [id number]
== END 2022-06-13 09:23 | disposition home or self-care (01) ==
LOC: XRAY 09:22
PROVIDERS: ATTEND Internal Medicine
DX: M19.011 Primary osteoarthritis, right shoulder (principal)

== ENCOUNTER 2022-07-18 09:06 | Outpatient (CLI) | payer MEDICARE ==
[2022-07-18 10:41] LABS: Chol/HDL Ratio 2.9 %
== END 2022-07-18 09:07 | disposition home or self-care (01) ==
LOC: LAB 09:06
PROVIDERS: ATTEND Internal Medicine
DX: E11.59 Type 2 diabetes mellitus with other circulatory complications (principal); E78.5 Hyperlipidemia, unspecified
CPT/HCPCS: 36415; 80061; 83036